=== PATIENT | female | born 1980 ===

== ENCOUNTER 2017-04-27 12:55 | Inpatient (IN) | payer MEDICAID, SELFPAY ==
[2017-04-27] MEDS ORDERED: Lactated Ringer's 1,000 ML IV SCH (14:00)
[2017-04-27] MEDS ORDERED: Betamethasone Soluspan 30 mg/5mL Inj Susp IM ONE (14:30)
[2017-04-27 14:35] LABS: BASO % 0.3 % (0.0-2.0); EOS # 0.1 K/uL (0.0-0.7); LYMPH # 1.3 K/uL (1.0-4.3); LYMPH % 13.8 % (20.0-40.0); MEAN CELL VOLUME 85.5 fL (81.0-99.0); MEAN CORPUSCULAR HGB CONC 33.9 g/dL (33.0-37.0); MEAN PLATELET VOLUME 7.8 fL (7.2-11.7); MONO # 0.6 K/uL (0.0-0.8); MONO % 5.9 % (0.0-10.0); NRBC % 0.1 % (0.0-2.0); WHITE BLOOD COUNT 9.4 K/uL (4.8-10.8)
[2017-04-27 14:41] LABS: RBC URINE 38 /hpf (0-3); URINE BACTERIA RARE (<OCC); URINE BILIRUBIN NEGATIVE (NEGATIVE); URINE BLOOD 3+ (NEGATIVE); URINE COLOR Yellow (YELLOW); URINE GLUCOSE (UA) NORMAL (Normal); URINE KETONE 1+ mg/dL (NEGATIVE); URINE LEUKOCYTE ESTERASE NEG Leu/uL (Negative); URINE PROTEIN 1+ mg/dL (NEGATIVE); URINE UROBILINOGEN NORMAL mg/dL (0.2-1.0); WBC URINE 6 /hpf (0-5)
[2017-04-27 14:59] LABS: ALKALINE PHOSPHATASE 209 U/L (38-126); ALT/SGPT 29 U/L (9-52); AST/SGOT 24 U/L (14-36); BILIRUBIN,TOTAL 0.6 mg/dL (0.2-1.3); BLOOD UREA NITROGEN 9 mg/dL (7-17); CALCIUM 8.2 mg/dl (8.6-10.4); CARBON DIOXIDE 22 mmol/L (22-30); CHLORIDE 101 mmol/L (98-107); GFR AFRICAN-AMERICAN > 60; GLUCOSE,RANDOM 128 mg/dL (65-105); POTASSIUM 3.1 mmol/L (3.6-5.2); SODIUM 125 mmol/L (132-148); TOTAL PROTEIN 6.5 g/dL (6.3-8.3)
[2017-04-27 15:19] LABS: ALB/GLOB RATIO 0.9 (1.0-2.1)
[2017-04-27] MEDS ORDERED: Sodium Chloride 0.9% 1,000 ML IV SCH (16:15)
[2017-04-27] MEDS ORDERED: Potassium Chloride 20 mEq ER Tab PO SCH (16:15)
--- NOTE | 2017-04-27 17:23 | OBHP ---
Datetime: 04/27/2017 14:35 IP Adm Impression: , intrauterine IP Admit Plan: Admit to unit; Observation/Evaluation Admit Comment, IP Provider: Patient is a 36 year old at 32w1d by LMP 09/14/16 presents to L+D for vaginal bleeding. Patient states that vaginal bleeding started at approximately 8am. States that she noticed bright red blood in her underwear. Denies any trauma or recent intercourse. Endorses +FM , denies CTX, LOF. Issues: Previous C/S x 1 OB Hx: 1. 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 Hx: LMP 09/14/16 [facility] - 14 x regular x 6 days Denies hx of fibroids, ovarian cysts, STIs Denies hx of abnormal pap smear Allergies: NKDA Medications: PNV Medical Hx: Denies Surgical Hx: C/S x 1 Social Hx: Denies alcohol, tobacco, drug use; lives with daugther Family Hx: Father - healthy ; Mother - healthy PE: See above A/P: 36 year old at 32w1d presents with third trimester vaginal bleeding -Admit for observation -Stable, afebrile - and maternal status reassuring -CEFM and TOCO -Will send for BPP -Labs: CBC, CMP, T+S, Coags, UA, UDS -Celestone 12mg ordered -LR @ 125 cc/hr -Diet: NPO -Pad count -Bedrest with SCDs -Plan d/w attending Jody Polk DO PGY-1 Patient examined with resident.agree with resident exam, assessment and plan Patient with third triemster bleeding.not in active labor. and maternal status reasusirng -admit for observation -monitor closely Extremities - PN: Normal Lungs - PN: Normal Heart - PN: Normal General - PN: Normal FHR - Baseline A Provider: 140 Contraction Comments Provider: occasional Comments, ACOG Physical Exam: VSS Gen: AAOx3 Abd: Soft, gravid Ext: No clubbing, cyanosis, edema SSE: 5cc of blood in vaginal vault, no active bleeding appreciated, cervix appears closed SVE: Closed/thick/high IP Hx Assessment: The History has been Reviewed and is Current EGA AdmitDate IP: 31.4 Vital Signs Provider: Reviewed IP Chief Complaint: Vaginal bleeding NICHD Variability Prov Fetus A: Moderate 6-25bpm NICHD Accel Fetus A IP Provider: [id number] FHR Category Provider Fetus A: Category I NICHD Decel Fetus A IP Provider: None Dilatation, Provider: closed Effacement, Provider: thick Station, Provider: high
[2017-04-27] MEDS ORDERED: Magnesium Sulfate 4 gm/100 ml 4 GM/100 ML BAG IVPB ONE ×2 (17:43→18:00)
[2017-04-27 18:22] LABS: BASO % 0.3 % (0.0-2.0); EOS % 0.3 % (0.0-4.0); LYMPH % 10.5 % (20.0-40.0); MEAN CORPUSCULAR HEMOGLOBIN 28.1 pg (27.0-31.0); MEAN CORPUSCULAR HGB CONC 33.1 g/dL (33.0-37.0); MEAN PLATELET VOLUME 7.7 fL (7.2-11.7); MONO # 0.3 K/uL (0.0-0.8); NRBC % 0.1 % (0.0-2.0); RED CELL DISTRIBUTION WIDTH 14.3 % (11.5-14.5); WHITE BLOOD COUNT 9.5 K/uL (4.8-10.8)
[2017-04-27] MEDS ORDERED: Magnesium Sulfate 20 gm 20,000 MG/500 ML BAG IV ONE (18:22)
[2017-04-27 18:44] LABS: ALB/GLOB RATIO 0.7 (1.0-2.1); ALKALINE PHOSPHATASE 226 U/L (38-126); ALT/SGPT 40 U/L (9-52); AST/SGOT 23 U/L (14-36); BILIRUBIN,TOTAL 0.3 mg/dL (0.2-1.3); BLOOD UREA NITROGEN 7 mg/dL (7-17); CALCIUM 7.9 mg/dl (8.6-10.4); CARBON DIOXIDE 20 mmol/L (22-30); CHLORIDE 107 mmol/L (98-107); GFR AFRICAN-AMERICAN > 60; GLUCOSE,RANDOM 100 mg/dL (65-105); MAGNESIUM 1.7 mg/dL (1.6-2.3); POTASSIUM 3.8 mmol/L (3.6-5.2); SODIUM 134 mmol/L (132-148); TOTAL PROTEIN 7.3 g/dL (6.3-8.3)
[2017-04-27] MEDS ORDERED: Magnesium Sulfate 20 gm 20 GM/500 ML BAG IV SCH (18:45)
--- NOTE | 2017-04-27 19:35 | US ---
EXAM: US Biophysical Profile Without Non-Stress Testing CLINICAL HISTORY: 36 years old, female; Signs and symptoms; Other: wellbeing; ; Patient HX: Efw 2291g on today's sono TECHNIQUE: Real-time ultrasound of the maternal pelvis for biophysical profile evaluation with image documentation. COMPARISON: There are no prior studies for comparison. FINDINGS: breathing movements: Score 2/2. Gross body movements: Score 2/2. tone: Score 2/2. Qualitative amniotic fluid volume: Score 2/2. IMPRESSION: Normal 01/03 biophysical profile EXAM: US Uterus, Limited EXAM DATE/TIME: 04/27/2017 1:51 PM CLINICAL HISTORY: 36 years old, female; Signs and symptoms; Other: wellbeing; ; Patient TECHNIQUE: Real-time ultrasound of the maternal uterus (limited) with image documentation. COMPARISON: No relevant prior studies available. FINDINGS: Fetus: There is a single living intrauterine gestation in transverse presentation, head to the maternal right. Heart rate is 130 beats per minute. anatomy: There is a four-chamber heart. There is a 2 vessel cord. There are kidneys in both flanks. Fluid is seen in the stomach and bladder. Placenta: The placenta is anterior. Amniotic fluid: Amniotic fluid index measures 13.357 m. Cervix: Cervix measures 47 m in length. BPD: 8.57 cm is, 34 weeks 4 days HC: 30.86 cm, 34 weeks 3 days AC: 29.71 cm, 33 weeks 5 days FL: 6.54 cm, 33 weeks 5 days Estimated weight is 2291 g By sonographic criteria, gestational age is 34 weeks 1 day Estimated date of delivery is 06/07/17 IMPRESSION: Single living 34 week 1 day transverse fetus, estimated date of delivery 06/07/17
--- NOTE | 2017-04-27 21:20 | OBPN ---
Datetime: 04/27/2017 21:11 Contraction Comments Provider: irregular ctx IP Progress Note Comment: Spatient stes that she is feeling the contractions and she is uncomfortabl e with them O-VS tachycardia noted FHT cat1 [place] irregular ctx sve closed/soft/high A/P Patient at 32,1 wga with episode of bleeding and now with uterine ctx.hx of csection.Patient s /p celestone and now on magnesium for tocolysis.despite [place] continues to hve contractions.Initi ally notd to be hyponatremic but on repeat labs normal sodium level.also has anemia.hemoglobin stable -case discussed with dr pritchett.recommend transfer to tertiary level in order to have acess to nicu in case of premature delivery. Explained to patient the need for transfer.patient voices undertanding the risks with the trasnfer and also the benefits. Desires to proceed with the transfer [facility] called and repprts given Vital Signs Provider: Reviewed FHR Category Provider Fetus A: Category I Datetime: 04/27/2017 14:35 FHR - Baseline A Provider: 140 NICHD Accel Fetus A IP Provider: [id number] NICHD Variability Prov Fetus A: Moderate 6-25bpm Dilatation, Provider: closed Effacement, Provider: thick Station, Provider: high NICHD Decel Fetus A IP Provider: None
[2017-04-28 03:19] VITALS: BP 113/65; PULSE 110; RESP 20; TEMP 98.6; O2SAT 97
== END 2017-04-27 22:15 | disposition short-term general hospital (02) | DRG 781 ==
LOC: C.EROB 12:55 → C.4D 13:48 → OBSVTOIN 13:49
PROVIDERS: ADMIT Student in an Organized Health Care Education/Training Program; ATTEND Student in an Organized Health Care Education/Training Program
DX: O46.8X3 Other antepartum hemorrhage, third trimester (principal); O99.283 Endocrine, nutritional and metabolic diseases complicating pregnancy, third trimester; E87.1 Hypo-osmolality and hyponatremia; Z3A.32 32 weeks gestation of pregnancy; O99.013 Anemia complicating pregnancy, third trimester; O34.219 Maternal care for unspecified type scar from previous cesarean delivery; O09.523 Supervision of elderly multigravida, third trimester